=== PATIENT | male | born 1975 | race Caucasian/White ===

== ENCOUNTER 2016-11-06 14:28 | Emergency (ER) | payer OTHER ==
[2016-11-06] MEDS ORDERED: Maalox 30 mL Cup PO ONE (14:50)
[2016-11-06] MEDS ORDERED: Maalox 30 mL Cup ONE (14:51)
--- NOTE | 2016-11-06 14:55 | ED Physician Chart ---
Chief Complaint/HPI - Patient Information Date Seen:: 11/06/16 Time Seen:: 14:40 Chief Complaint:: ` supraumbilical pain History of Present Illness:: 1-1-1/2 hours ago patient drank some MCT oil which is like coconut oil about 20 minutes later developed supraumbilical burning pain. He's had no vomiting or diarrhea. Allergies:: Allergies Allergy/AdvReac Type Severity Reaction Status Date / Time erythromycin base Allergy Verified 11/06/16 14:38 peanut Allergy Verified 11/06/16 14:38 shellfish derived Allergy Verified 11/06/16 14:38 Vitals:: Vital Signs - 8 hr 11/06/16 14:39 Temp 98.2 F HR 83 RR 19 BP 154/99 O2 Sat % 98 Historian:: Patient Review:: Nurse's Note Reviewed Review of Systems - Review of Systems General/Constitutional: No fever, No chills Skin: No skin lesions Head: No headache Eyes: No loss of vision ENT: No earache Neck: No neck pain, No swelling Cardio Vascular: No chest pain, No palpitations Pulmonary: No SOB GI: Pain G/U: No dysuria, No hematuria Musculoskeletal: No bone or joint pain Endocrine: No polyuria, No polydipsia Psychiatric: No prior psych history Hematopoietic: No bruising Allergic/Immuno: No urticaria Neurological: No syncope Past Medical History - Past Medical History Past Medical History: No significant medical hx Family History: Heart disease, Diabetes Melitus Social History: Non Smoker, Alcohol, Other (drinks about 10 cans of beer per week) Surgical History: None Psychiatricy History: None Medication: None Family Medical History - Family Member Mother Living Status: Still Living Hx Family Coronary Artery Disease: Yes Hx Family Diabetes: Yes Labs/Radiology/EKG Results - Lab Results Results: Laboratory Results - last 24 hr 11/06/16 11/06/16 14:53 14:53 WBC 8.6 RBC 5.31 Hgb 15.4 Hct 45.2 MCV 85.1 MCH 28.9 MCHC Differential 33.9 RDW 12.0 Plt Count 267 MPV 7.0 Neutrophils % 71.8 Lymphocytes % 19.6 L Monocytes % 4.8 Eosinophils % 3.7 Basophils % 0.1 Sodium 133 L Potassium 3.5 Chloride 103 Carbon Dioxide 26.6 Anion Gap 6.9 L BUN 13 Creatinine 0.9 Est GFR ( Amer) > 60.0 Est GFR (Non-Af Amer) > 60.0 BUN/Creatinine Ratio 14.4 Glucose 155 H Calcium 9.4 Magnesium 2.2 Lipase 41 Assessment - Assessment General Assessment: Epigastric pain much improved after Maalox. Patient aware that his troponin will not return for few more hours. He still wishes to be discharged. Patient also informed of his elevated blood sugar and I suggested patient have a fasting blood sugar. ED Septic Shock - . Is Septic Shock (SBP<90, OR Lactate>4 mmol\L) present?: No - <6hrs of presentation: Vital Signs: Vital Signs - 8 hr 11/06/16 14:39 Temp 98.2 F HR 83 RR 19 BP 154/99 O2 Sat % 98 Reassessment (Disposition) - Reassessment Reassessment Condition:: Improved - Diagnosis Diagnosis:: Gastritis; hyperglycemia - Aftercare/Follow up Instructions Aftercare/Follow-Up Instructions:: Refer to Discharge Instructions - Patient Disposition Discharge/Transfer:: Home Condition at Disposition:: Stable ED Discharge Plan - Patient Disposition Instructions: Gastritis, Adult, [id number] Additional Instructions: TOLERATED.
[2016-11-06 15:00] LABS: % BASOPHILS 0.1 % (0.0-2.0); % EOSINOPHILS 3.7 % (0.0-5.0); % LYMPHOCYTES 19.6 % (20.0-50.0); % MONOCYTES 4.8 % (2.0-10.0); % NEUTROPHILS 71.8 % (40.0-80.0); HEMATOCRIT 45.2 % (39.0-49.0); HEMOGLOBIN 15.4 gm/dL (13.2-17.3); MEAN CELL VOLUME 85.1 fl (80-99); MEAN CORPUSCULAR HEMOGLOBIN 28.9 pg (26.0-30.0); MEAN CORPUSCULAR HGB CONC 33.9 pg (28.0-36.0); NEUTROPHILE ABSOLUTE 6.2 Th/cmm (1.8-8.0); PLATELET COUNT 267 Th/cmm (150-400); RED BLOOD COUNT 5.31 Mil/cmm (4.30-5.70); WHITE BLOOD COUNT 8.6 Th/cmm (4.8-10.8)
[2016-11-06 15:17] LABS: ANION GAP 6.9 (7.0-16.0); BUN - UREA NITROGEN 13 mg/dL (7-25); BUN/CREATININE RATIO 14.4; CALCIUM SERUM 9.4 mg/dL (8.6-10.3); CARBON DIOXIDE 26.6 mEq/L (21.0-31.0); CHLORIDE 103 mEq/L (98-107); CREATININE - SERUM 0.9 mg/dL (0.7-1.3); GLUCOSE 155 mg/dL (70-105); LIPASE 41 U/L (11-82); MAGNESIUM 2.2 mg/dL (1.9-2.7); POTASSIUM SERUM 3.5 mEq/L (3.5-5.1); SODIUM SERUM 133 mEq/L (136-145)
== END 2016-11-06 16:05 | disposition home or self-care (01) ==
LOC: ER 14:28
DX: K29.70 Gastritis, unspecified, without bleeding (principal); R73.9 Hyperglycemia, unspecified
CPT/HCPCS: 36415-UA; 80048-TC; 83690-TC; 83735-TC; 84484-TC; 85025-TC; Z7502